=== PATIENT | female | born 1955 | race Caucasian/White ===

== ENCOUNTER 2018-05-10 11:35 | Inpatient (IN) | payer OTHER ==
[2018-05-10 12:09] LABS: ADD MAN DIFF? NO
[2018-05-10 12:10] LABS: WHITE BLOOD COUNT 10.9 10^3/ul (4.8-10.8)
[2018-05-10 12:10] LABS: BASOPHILS % 0.3 % (0.0-2.0); EOSINOPHILS # 0.2 10^3/ul (0.0-0.5); EOSINOPHILS % 1.9 % (0.0-7.0); HEMATOCRIT 34.1 % (37.0-47.0); HEMOGLOBIN 11.8 g/dl (12.0-16.0); LYMPHOCYTES # 0.8 10^3/ul (0.8-2.9); LYMPHOCYTES % 7.5 % (15.0-51.0); MEAN CORPUSCULAR HEMOGLOBIN 33.6 pg (29.0-33.0); MEAN CORPUSCULAR HGB CONC 34.6 g/dl (32.0-37.0); MEAN CORPUSCULAR VOLUME 97.2 fl (82.0-101.0); MEAN PLATELET VOLUME 11.7 fl (7.4-10.4); MONOCYTE # 0.7 10^3/ul (0.3-0.9); MONOCYTES % 6.7 % (0.0-11.0); NEUTROPHILS % 82.7 % (39.0-77.0); PLATELET COUNT 192 10^3/UL (140-415); RED BLOOD COUNT 3.51 10^6/ul (4.20-5.40); RED CELL DISTRIBUTION WIDTH 13.6 % (11.5-14.5)
[2018-05-10] MEDS: ONDANSETRON 4 MG INJ IV (12:15)
[2018-05-10 12:27] LABS: LACTIC ACID 1.8 mmol/L (0.5-2.0)
[2018-05-10 12:29] LABS: ALANINE AMINOTRANSFERASE 25 IU/L (13-69); ALBUMIN 4.5 g/dl (3.3-4.9); ALBUMIN/GLOBULIN RATIO 1.25; ALKALINE PHOSPHATASE 141 IU/L (42-121); ANION GAP 22 (8-16); ASPARTATE AMINO TRANSFERASE 23 IU/L (15-46); BLOOD UREA NITROGEN 56 mg/dl (7-20); CALCIUM 7.6 mg/dl (8.4-10.2); CARBON DIOXIDE 27 mmol/L (21-31); CHLORIDE 88 mmol/L (97-110); CREATININE 7.73 mg/dl (0.44-1.00); GLUCOSE 303 mg/dl (70-220); INR 0.91; PROTIME 12.3 Sec (11.9-14.9); SODIUM 130 mmol/L (135-144); TOTAL PROTEIN 8.1 g/dl (6.1-8.1)
[2018-05-10 12:30] LABS: PARTIAL THROMBOPLASTIN TIME 45.6 Sec (25.0-35.0)
[2018-05-10 12:38] LABS: POTASSIUM 7.2 mmol/L (3.5-5.1)
[2018-05-10 12:40] LABS: TROPONIN-I 0.011 ng/ml (0.000-0.120)
[2018-05-10] MEDS: NA POLYST SULFON 15 GM/60 ML BTL PO (13:03)
[2018-05-10] MEDS ORDERED: NACL 0.9% 3 ML SYG IV (13:30)
[2018-05-10] MEDS ORDERED: morphine 2 MG INJ IV (13:30)
[2018-05-10] MEDS ORDERED: LORAZEPAM 0.5 MG TAB PO (13:30)
[2018-05-10] MEDS ORDERED: ONDANSETRON 4 MG INJ IV (13:30)
[2018-05-10] MEDS ORDERED: ACETAMINOPHEN 325 MG TAB PO (13:30)
[2018-05-10] MEDS ORDERED: HYDROCODONE/APAP (5/325) TAB PO (13:30)
[2018-05-10] MEDS ORDERED: ALBUMIN HUMAN 25% 50 ML IV (14:00)
[2018-05-10] MEDS ORDERED: LABETALOL HCL 20MG INJ IV (14:00)
[2018-05-10 14:42] LABS: LACTIC ACID 2.6 mmol/L (0.5-2.0)
[2018-05-10 14:45] LABS: POTASSIUM 7.8 mmol/L (3.5-5.1)
[2018-05-10] MEDS ORDERED: GLUCOSE GEL 15 GRAM TUBE PO ×2 (15:30)
[2018-05-10] MEDS ORDERED: DEXTROSE 50% 50 ML SYRINGE IV ×2 (15:30)
[2018-05-10] MEDS ORDERED: GLUCOSE GEL 15 GRAM TUBE BUCCAL (15:30)
[2018-05-10] MEDS ORDERED: GLUCAGON 1 MG INJ IM (15:30)
[2018-05-10 15:32] LABS: HEPATITIS B SURFACE ANTIGEN NEGATIVE (NEGATIVE)
[2018-05-10] MEDS: GABAPENTIN 100 MG CAP PO ×2 (16:24→20:51)
[2018-05-10] MEDS: SOD CHLORIDE 0.9% 1,000 ML IV (16:24)
[2018-05-10 17:08] LABS: LACTIC ACID 2.1 mmol/L (0.5-2.0)
[2018-05-10] MEDS: CEFTRIAXONE 1 GM/50 ML (PMX) 50 ML IVPB (17:11)
[2018-05-10] MEDS: CALCIUM ACETATE 667 MG CAP PO (17:15)
[2018-05-10] MEDS: INSULIN ASPART [NOVOLOG] 3 ML PEN SC ×3 (18:18→20:50)
[2018-05-10] MEDS: INSULIN GLARGINE [LANTus] (100 UNITS/ML) SYG SC (20:00)
[2018-05-10] MEDS: METOPROLOL 25 MG TAB PO (20:49)
[2018-05-10] MEDS: NIFEdipine (XL) 60 MG TAB PO (20:51)
[2018-05-11] MEDS: ACCU-CHEK XX (02:00)
[2018-05-11] MEDS: BUMETANIDE 1 MG TAB PO (05:50)
[2018-05-11] MEDS: LEVOTHYROXINE 125 MCG TAB PO (05:50)
[2018-05-11 07:05] LABS: ADD MAN DIFF? NO
[2018-05-11 07:13] LABS: WHITE BLOOD COUNT 7.2 10^3/ul (4.8-10.8)
[2018-05-11 07:13] LABS: BASOPHILS % 0.4 % (0.0-2.0); EOSINOPHILS # 0.2 10^3/ul (0.0-0.5); EOSINOPHILS % 2.3 % (0.0-7.0); HEMATOCRIT 29.7 % (37.0-47.0); HEMOGLOBIN 9.9 g/dl (12.0-16.0); LYMPHOCYTES % 13.4 % (15.0-51.0); MEAN CORPUSCULAR HEMOGLOBIN 32.8 pg (29.0-33.0); MEAN CORPUSCULAR HGB CONC 33.3 g/dl (32.0-37.0); MEAN CORPUSCULAR VOLUME 98.3 fl (82.0-101.0); MEAN PLATELET VOLUME 12.1 fl (7.4-10.4); MONOCYTE # 0.6 10^3/ul (0.3-0.9); MONOCYTES % 8.7 % (0.0-11.0); NEUTROPHIL # 5.4 10^3/ul (1.6-7.5); NEUTROPHILS % 74.6 % (39.0-77.0); PLATELET COUNT 174 10^3/UL (140-415); RED BLOOD COUNT 3.02 10^6/ul (4.20-5.40)
[2018-05-11 07:37] LABS: LACTIC ACID 1.8 mmol/L (0.5-2.0)
[2018-05-11 07:40] LABS: ALANINE AMINOTRANSFERASE 25 IU/L (13-69); ALBUMIN 3.2 g/dl (3.3-4.9); ALBUMIN/GLOBULIN RATIO 1.03; ALKALINE PHOSPHATASE 72 IU/L (42-121); ANION GAP 16 (8-16); ASPARTATE AMINO TRANSFERASE 19 IU/L (15-46); BLOOD UREA NITROGEN 27 mg/dl (7-20); CALCIUM 7.4 mg/dl (8.4-10.2); CARBON DIOXIDE 29 mmol/L (21-31); CHLORIDE 96 mmol/L (97-110); CREATININE 4.82 mg/dl (0.44-1.00); GLUCOSE 106 mg/dl (70-220); POTASSIUM 5.1 mmol/L (3.5-5.1); SODIUM 136 mmol/L (135-144); TOTAL PROTEIN 6.3 g/dl (6.1-8.1)
[2018-05-11] MEDS: INSULIN ASPART [NOVOLOG] 3 ML PEN SC ×4 (08:08→12:30)
[2018-05-11 08:12] LABS: HEMOGLOBIN A1C 8.9 % (0-5.9)
[2018-05-11] MEDS: ASPIRIN 81 MG TAB PO (08:49)
[2018-05-11] MEDS: AMIODARONE 200 MG TAB PO (08:50)
[2018-05-11] MEDS: METOPROLOL 25 MG TAB PO (08:50)
[2018-05-11] MEDS: CALCIUM ACETATE 667 MG CAP PO ×2 (08:50→12:22)
[2018-05-11] MEDS: GABAPENTIN 100 MG CAP PO ×2 (08:51→12:22)
[2018-05-11] MEDS ORDERED: BENAZEPRIL 40 MG TAB PO (09:00)
[2018-05-15] MEDS ORDERED: LIDOCAINE 100 MG SYRINGE (20:10)
[2018-05-15] MEDS ORDERED: morphine SULFATE/PF (10 MG/10 ML) INJ (20:11)
[2018-05-15] MEDS ORDERED: LIDOCAINE 2% (SDV) 5 ML INJ (20:11)
[2018-05-15] MEDS ORDERED: KETOROLAC 30 MG INJ (20:11)
[2018-05-15] MEDS ORDERED: OXYTOCIN 10 UNIT INJ (20:11)
[2018-05-15] MEDS ORDERED: MIDAZOLAM 1 MG/ML 2 ML INJ ×2 (20:11)
[2018-05-15] MEDS ORDERED: MISOPROSTOL 200 MCG TAB (20:11)
== END 2018-05-11 14:25 | disposition home or self-care (01) | DRG 304 ==
LOC: E/R 11:35 → TEL 13:20
PROC: 5A1D70Z Performance of Urinary Filtration, Intermittent, Less than 6 Hours Per Day (ICD-10-PCS; principal; 2018-05-10)
DX: I16.1 Hypertensive emergency (principal); N18.6 End stage renal disease; E87.1 Hypo-osmolality and hyponatremia; I12.0 Hypertensive chronic kidney disease with stage 5 chronic kidney disease or end stage renal disease; E11.22 Type 2 diabetes mellitus with diabetic chronic kidney disease; E87.5 Hyperkalemia; I48.0 Paroxysmal atrial fibrillation; E03.9 Hypothyroidism, unspecified; E11.42 Type 2 diabetes mellitus with diabetic polyneuropathy; Z79.4 Long term (current) use of insulin; Z91.11 Patient's noncompliance with dietary regimen; R51 Headache; Z99.2 Dependence on renal dialysis
CPT/HCPCS: 36415; 71045; 80053; 82962; 83036; 83605; 83735; 84132; 84443; 84484; 85025; 85610; 85730; 87040; 87340; 90935; 93005; 96374; 99285-25

== ENCOUNTER 2018-10-04 14:04 | Emergency (ER) | payer OTHER, MEDICAID ==
[2018-10-04] MEDS: ONDANSETRON 4 MG INJ IV (14:37)
[2018-10-04] MEDS: morphine 4 MG/ML VIAL IV (14:37)
[2018-10-04 14:45] LABS: ADD MAN DIFF? NO
[2018-10-04 14:47] LABS: BASOPHILS % 0.2 % (0.0-2.0); EOSINOPHILS # 0.2 10^3/ul (0.0-0.5); EOSINOPHILS % 1.9 % (0.0-7.0); HEMATOCRIT 31.8 % (37.0-47.0); HEMOGLOBIN 10.6 g/dl (12.0-16.0); LYMPHOCYTES % 9.4 % (15.0-51.0); MEAN CORPUSCULAR HEMOGLOBIN 32.6 pg (29.0-33.0); MEAN CORPUSCULAR HGB CONC 33.3 g/dl (32.0-37.0); MEAN CORPUSCULAR VOLUME 97.8 fl (82.0-101.0); MONOCYTE # 0.6 10^3/ul (0.3-0.9); MONOCYTES % 5.6 % (0.0-11.0); NEUTROPHIL # 8.6 10^3/ul (1.6-7.5); NEUTROPHILS % 82.4 % (39.0-77.0); PLATELET COUNT 191 10^3/UL (140-415); RED BLOOD COUNT 3.25 10^6/ul (4.20-5.40); RED CELL DISTRIBUTION WIDTH 13.3 % (11.5-14.5)
[2018-10-04 14:47] LABS: WHITE BLOOD COUNT 10.5 10^3/ul (4.8-10.8)
[2018-10-04 15:06] LABS: ANION GAP 12 (5-13); BLOOD UREA NITROGEN 30 mg/dl (7-20); CALCIUM 8.5 mg/dl (8.4-10.2); CARBON DIOXIDE 32 mmol/L (21-31); CHLORIDE 95 mmol/L (97-110); CREATININE 4.44 mg/dl (0.44-1.00); Estimated GFR 10 mL/min (>60); GLUCOSE 233 mg/dl (70-220); POTASSIUM 3.7 mmol/L (3.5-5.1); SODIUM 139 mmol/L (135-144)
[2018-10-04 15:07] LABS: INR 0.92; PROTIME 12.4 Sec (11.9-14.9)
[2018-10-04 15:08] LABS: PARTIAL THROMBOPLASTIN TIME 47.9 Sec (23.0-35.0)
[2018-10-04 15:18] LABS: TROPONIN-I 0.014 ng/ml (0.000-0.120)
[2018-10-04] MEDS: DILTIAZEM 25 MG INJ IV (15:20)
[2018-10-04] MEDS: SOD CHLORIDE 0.9% 100 ML (16:22)
[2018-10-04] MEDS: IODIXANOL LOCM 100 ML BTL (16:22)
== END 2018-10-04 17:14 | disposition home or self-care (01) ==
LOC: E/R 14:04
DX: M54.9 Dorsalgia, unspecified (principal); R00.0 Tachycardia, unspecified; D64.9 Anemia, unspecified; I12.9 Hypertensive chronic kidney disease with stage 1 through stage 4 chronic kidney disease, or unspecified chronic kidney disease; N18.9 Chronic kidney disease, unspecified; E03.9 Hypothyroidism, unspecified; Z99.2 Dependence on renal dialysis; Z79.4 Long term (current) use of insulin; Z79.82 Long term (current) use of aspirin
CPT/HCPCS: 36415; 71045; 71275; 80048; 84484; 85025; 85610; 85730; 93005; 96374; 96375; 99285-25

== ENCOUNTER 2018-12-20 20:16 | Emergency (ER) | payer OTHER, MEDICAID ==
[2018-12-20] MEDS: DILTIAZEM 25 MG INJ IV (20:52)
[2018-12-20 20:54] LABS: ADD MAN DIFF? NO
[2018-12-20 21:06] LABS: WHITE BLOOD COUNT 9.6 10^3/ul (4.8-10.8)
[2018-12-20 21:06] LABS: BASOPHILS % 0.4 % (0.0-2.0); EOSINOPHILS # 0.3 10^3/ul (0.0-0.5); EOSINOPHILS % 2.7 % (0.0-7.0); HEMATOCRIT 33.5 % (37.0-47.0); LYMPHOCYTES # 1.2 10^3/ul (0.8-2.9); LYMPHOCYTES % 12.3 % (15.0-51.0); MEAN CORPUSCULAR HEMOGLOBIN 32.5 pg (29.0-33.0); MEAN CORPUSCULAR HGB CONC 32.8 g/dl (32.0-37.0); MEAN CORPUSCULAR VOLUME 99.1 fl (82.0-101.0); MEAN PLATELET VOLUME 11.8 fl (7.4-10.4); MONOCYTE # 0.6 10^3/ul (0.3-0.9); MONOCYTES % 6.1 % (0.0-11.0); NEUTROPHIL # 7.4 10^3/ul (1.6-7.5); NEUTROPHILS % 77.5 % (39.0-77.0); PLATELET COUNT 217 10^3/UL (140-415); RED BLOOD COUNT 3.38 10^6/ul (4.20-5.40); RED CELL DISTRIBUTION WIDTH 13.1 % (11.5-14.5)
[2018-12-20 21:30] LABS: ANION GAP 14 (5-13); BLOOD UREA NITROGEN 23 mg/dl (7-20); CALCIUM 8.6 mg/dl (8.4-10.2); CARBON DIOXIDE 32 mmol/L (21-31); CHLORIDE 92 mmol/L (97-110); CREATININE 4.41 mg/dl (0.44-1.00); Estimated GFR 10 mL/min (>60); POTASSIUM 3.9 mmol/L (3.5-5.1); SODIUM 138 mmol/L (135-144)
[2018-12-20 21:40] LABS: TROPONIN-I < 0.012 ng/ml (0.000-0.120)
[2018-12-20 21:42] LABS: GLUCOSE 404 mg/dl (70-220)
[2018-12-20] MEDS: INSULIN ASP PROT/ASPART (70/30) PEN SC (23:33)
== END 2018-12-21 00:36 | disposition home or self-care (01) ==
LOC: E/R 12-21 00:36
DX: I49.01 Ventricular fibrillation (principal); E03.9 Hypothyroidism, unspecified; E11.65 Type 2 diabetes mellitus with hyperglycemia; I12.0 Hypertensive chronic kidney disease with stage 5 chronic kidney disease or end stage renal disease; N18.6 End stage renal disease; E11.22 Type 2 diabetes mellitus with diabetic chronic kidney disease; Z79.4 Long term (current) use of insulin; Z79.82 Long term (current) use of aspirin; Z99.2 Dependence on renal dialysis
CPT/HCPCS: 36415; 71045; 80048; 82962; 84484; 85025; 93005; 96372; 96374; 99291-25

== ENCOUNTER 2019-05-19 21:15 | Inpatient (IN) | payer OTHER, MEDICAID ==
[2019-05-20 00:10] LABS: ADD MAN DIFF? NO
[2019-05-20 00:11] LABS: WHITE BLOOD COUNT 9.3 10^3/ul (4.8-10.8)
[2019-05-20 00:11] LABS: BASOPHILS % 0.4 % (0.0-2.0); EOSINOPHILS # 0.3 10^3/ul (0.0-0.5); EOSINOPHILS % 2.7 % (0.0-7.0); HEMATOCRIT 30.4 % (37.0-47.0); HEMOGLOBIN 10.1 g/dl (12.0-16.0); LYMPHOCYTES # 1.1 10^3/ul (0.8-2.9); MEAN CORPUSCULAR HEMOGLOBIN 31.9 pg (29.0-33.0); MEAN CORPUSCULAR HGB CONC 33.2 g/dl (32.0-37.0); MEAN CORPUSCULAR VOLUME 95.9 fl (82.0-101.0); MEAN PLATELET VOLUME 12.1 fl (7.4-10.4); MONOCYTE # 0.8 10^3/ul (0.3-0.9); MONOCYTES % 8.5 % (0.0-11.0); NEUTROPHIL # 7.1 10^3/ul (1.6-7.5); NEUTROPHILS % 75.4 % (39.0-77.0); PLATELET COUNT 181 10^3/UL (140-415); RED BLOOD COUNT 3.17 10^6/ul (4.20-5.40); RED CELL DISTRIBUTION WIDTH 13.1 % (11.5-14.5)
[2019-05-20] MEDS: morphine 2 MG INJ IV ×2 (00:23→16:54)
[2019-05-20] MEDS: ONDANSETRON 4 MG INJ IV ×3 (00:23→20:15)
[2019-05-20 00:28] LABS: ALANINE AMINOTRANSFERASE 25 IU/L (13-69); ALBUMIN 4.3 g/dl (3.3-4.9); ALBUMIN/GLOBULIN RATIO 1.07; ALKALINE PHOSPHATASE 107 IU/L (42-121); ANION GAP 19 (5-13); ASPARTATE AMINO TRANSFERASE 25 IU/L (15-46); BILIRUBIN,INDIRECT 0.2 mg/dl (0-1.1); BILIRUBIN,TOTAL 0.2 mg/dl (0.2-1.3); BLOOD UREA NITROGEN 71 mg/dl (7-20); CARBON DIOXIDE 22 mmol/L (21-31); CHLORIDE 93 mmol/L (97-110); CREATININE 9.69 mg/dl (0.44-1.00); Estimated GFR 4 mL/min (>60); GLUCOSE 235 mg/dl (70-220); LIPASE 79 U/L (23-300); SODIUM 134 mmol/L (135-144); TOTAL PROTEIN 8.3 g/dl (6.1-8.1)
[2019-05-20] MEDS: NITROGLYCERIN 50 MG/D5W (PMX) 250 ML IV ×6 (00:38→22:57)
[2019-05-20 01:02] LABS: POTASSIUM 6.7 mmol/L (3.5-5.1)
[2019-05-20] MEDS ORDERED: DEXTROSE 50% 50 ML SYRINGE IV ×3 (01:30→13:00)
[2019-05-20] MEDS: ALBUTEROL 0.5% (NEB) 2.5 MG/0.5 ML AMP INH (02:37)
[2019-05-20] MEDS: INSULIN REGULAR, HUMAN 100 UNIT/1 ML 3ML VIAL IVP (02:44)
[2019-05-20] MEDS: DEXTROSE 50% 50 ML SYRINGE IV (02:45)
[2019-05-20 04:03] LABS: ALANINE AMINOTRANSFERASE 22 IU/L (13-69); ALBUMIN 3.7 g/dl (3.3-4.9); ALBUMIN/GLOBULIN RATIO 1.05; ALKALINE PHOSPHATASE 76 IU/L (42-121); ANION GAP 17 (5-13); ASPARTATE AMINO TRANSFERASE 18 IU/L (15-46); BILIRUBIN,INDIRECT 0.2 mg/dl (0-1.1); BILIRUBIN,TOTAL 0.2 mg/dl (0.2-1.3); BLOOD UREA NITROGEN 73 mg/dl (7-20); CALCIUM 7.5 mg/dl (8.4-10.2); CARBON DIOXIDE 22 mmol/L (21-31); CHLORIDE 93 mmol/L (97-110); CREATININE 9.71 mg/dl (0.44-1.00); Estimated GFR 4 mL/min (>60); GLUCOSE 269 mg/dl (70-220); POTASSIUM 5.3 mmol/L (3.5-5.1); SODIUM 132 mmol/L (135-144); TOTAL PROTEIN 7.2 g/dl (6.1-8.1)
[2019-05-20] MEDS: SODIUM POLYSTYRENE 15 GM KIT (POWDER + SORBITOL) PO (05:51)
[2019-05-20 05:55] LABS: ALANINE AMINOTRANSFERASE 21 IU/L (13-69); ALBUMIN 3.6 g/dl (3.3-4.9); ALBUMIN/GLOBULIN RATIO 1.05; ALKALINE PHOSPHATASE 79 IU/L (42-121); ANION GAP 17 (5-13); ASPARTATE AMINO TRANSFERASE 17 IU/L (15-46); BILIRUBIN,INDIRECT 0.2 mg/dl (0-1.1); BILIRUBIN,TOTAL 0.2 mg/dl (0.2-1.3); BLOOD UREA NITROGEN 75 mg/dl (7-20); CALCIUM 7.5 mg/dl (8.4-10.2); CARBON DIOXIDE 23 mmol/L (21-31); CHLORIDE 95 mmol/L (97-110); CREATININE 9.64 mg/dl (0.44-1.00); Estimated GFR 4 mL/min (>60); GLUCOSE 219 mg/dl (70-220); POTASSIUM 5.1 mmol/L (3.5-5.1); SODIUM 135 mmol/L (135-144)
[2019-05-20] MEDS ORDERED: HEPARIN 5,000 UNIT/1 ML VIAL SC (08:30)
[2019-05-20] MEDS ORDERED: DOCUSATE SODIUM 100 MG CAP PO (08:30)
[2019-05-20] MEDS ORDERED: BISACODYL (EC) 5 MG TAB PO (08:30)
[2019-05-20 08:54] LABS: HEMOGLOBIN A1C 9.6 % (0-5.9)
[2019-05-20 11:16] LABS: HEPATITIS B SURFACE ANTIGEN NEGATIVE (NEGATIVE)
[2019-05-20] MEDS: FAMOTIDINE 20 MG TAB PO (11:41)
[2019-05-20] MEDS: CALCIUM ACETATE 667 MG CAP PO ×2 (11:41→17:35)
[2019-05-20] MEDS: APIXABAN 5 MG TABLET PO ×2 (11:41→20:15)
[2019-05-20] MEDS: PYRIDOXINE 50 MG TAB PO (11:41)
[2019-05-20] MEDS: ASPIRIN (EC) 81 MG TAB PO (11:41)
[2019-05-20] MEDS: PANTOPRAZOLE (EC) 40 MG TAB PO (11:42)
[2019-05-20] MEDS: PENTOXIFYLLINE (SR) 400 MG TAB PO (11:42)
[2019-05-20] MEDS: CALCIUM GLUCONATE 10% 1 GM in DEXTROSE 5% 100 ML IVPB (12:54)
[2019-05-20] MEDS: NYSTATIN 15 GM CR TOP ×2 (12:54→20:24)
[2019-05-20] MEDS ORDERED: GLUCOSE GEL 15 GRAM TUBE PO ×2 (13:00)
[2019-05-20] MEDS ORDERED: GLUCOSE GEL 15 GRAM TUBE BUCCAL (13:00)
[2019-05-20] MEDS ORDERED: GLUCAGON 1 MG INJ IM (13:00)
[2019-05-20] MEDS ORDERED: morphine 2 MG INJ IV (17:00)
[2019-05-20] MEDS: INSULIN ASPART [NOVOLOG] 3 ML PEN SC ×3 (17:39→20:27)
[2019-05-20] MEDS: ACETAMINOPHEN 650MG/20.3ML CUP PO (17:47)
[2019-05-20] MEDS: HYDROCODONE/APAP (5/325) TAB PO (20:23)
[2019-05-20] MEDS: NIFEdipine (XL) 60 MG TAB PO (21:03)
[2019-05-20] MEDS ORDERED: hydrALAzine 20 MG INJ IV (23:30)
[2019-05-21] MEDS: NITROGLYCERIN 50 MG/D5W (PMX) 250 ML IV (01:21)
[2019-05-21] MEDS: ACCU-CHEK XX (01:21)
[2019-05-21 06:04] LABS: ANION GAP 12 (5-13); BLOOD UREA NITROGEN 36 mg/dl (7-20); CALCIUM 8.3 mg/dl (8.4-10.2); CARBON DIOXIDE 27 mmol/L (21-31); CHLORIDE 92 mmol/L (97-110); CREATININE 6.55 mg/dl (0.44-1.00); Estimated GFR 6 mL/min (>60); GLUCOSE 153 mg/dl (70-220); POTASSIUM 5.2 mmol/L (3.5-5.1); SODIUM 131 mmol/L (135-144)
[2019-05-21] MEDS: INSULIN ASPART [NOVOLOG] 3 ML PEN SC ×6 (07:35→20:41)
[2019-05-21] MEDS: ASPIRIN (EC) 81 MG TAB PO (08:17)
[2019-05-21] MEDS: PENTOXIFYLLINE (SR) 400 MG TAB PO (08:17)
[2019-05-21] MEDS: PANTOPRAZOLE (EC) 40 MG TAB PO (08:17)
[2019-05-21] MEDS: PYRIDOXINE 50 MG TAB PO (08:17)
[2019-05-21] MEDS: FAMOTIDINE 20 MG TAB PO (08:17)
[2019-05-21] MEDS: APIXABAN 5 MG TABLET PO ×2 (08:17→20:40)
[2019-05-21] MEDS: CALCIUM ACETATE 667 MG CAP PO ×3 (08:17→17:46)
[2019-05-21] MEDS: NIFEdipine (XL) 60 MG TAB PO ×2 (08:17→20:41)
[2019-05-21] MEDS: BENAZEPRIL 40 MG TAB PO (08:19)
[2019-05-21] MEDS: NYSTATIN 15 GM CR TOP ×2 (08:20→22:56)
[2019-05-21] MEDS: LEVOTHYROXINE 125 MCG TAB PO (10:24)
[2019-05-21] MEDS: ONDANSETRON 4 MG INJ IV (12:24)
[2019-05-22] MEDS: ACCU-CHEK XX (02:00)
[2019-05-22 05:42] LABS: ADD MAN DIFF? NO
[2019-05-22 05:44] LABS: BASOPHILS % 0.4 % (0.0-2.0); EOSINOPHILS # 0.3 10^3/ul (0.0-0.5); HEMOGLOBIN 8.4 g/dl (12.0-16.0); LYMPHOCYTES # 1.1 10^3/ul (0.8-2.9); LYMPHOCYTES % 14.8 % (15.0-51.0); MEAN CORPUSCULAR HEMOGLOBIN 31.2 pg (29.0-33.0); MEAN CORPUSCULAR HGB CONC 32.3 g/dl (32.0-37.0); MEAN CORPUSCULAR VOLUME 96.7 fl (82.0-101.0); MEAN PLATELET VOLUME 12.1 fl (7.4-10.4); MONOCYTE # 0.8 10^3/ul (0.3-0.9); MONOCYTES % 10.7 % (0.0-11.0); NEUTROPHIL # 5.2 10^3/ul (1.6-7.5); NEUTROPHILS % 69.7 % (39.0-77.0); PLATELET COUNT 156 10^3/UL (140-415); RED BLOOD COUNT 2.69 10^6/ul (4.20-5.40); RED CELL DISTRIBUTION WIDTH 13.1 % (11.5-14.5)
[2019-05-22 05:44] LABS: WHITE BLOOD COUNT 7.5 10^3/ul (4.8-10.8)
[2019-05-22] MEDS: LEVOTHYROXINE 125 MCG TAB PO (06:04)
[2019-05-22 06:44] LABS: ANION GAP 14 (5-13); BLOOD UREA NITROGEN 48 mg/dl (7-20); CALCIUM 8.3 mg/dl (8.4-10.2); CARBON DIOXIDE 27 mmol/L (21-31); CHLORIDE 91 mmol/L (97-110); CREATININE 7.92 mg/dl (0.44-1.00); Estimated GFR 5 mL/min (>60); GLUCOSE 140 mg/dl (70-220); MAGNESIUM 1.9 mg/dl (1.7-2.5); PHOSPHORUS 9.5 mg/dl (2.5-4.9); POTASSIUM 5.2 mmol/L (3.5-5.1); SODIUM 132 mmol/L (135-144)
[2019-05-22] MEDS: NYSTATIN 15 GM CR TOP ×2 (08:46→23:12)
[2019-05-22] MEDS: PENTOXIFYLLINE (SR) 400 MG TAB PO (08:46)
[2019-05-22] MEDS: BENAZEPRIL 40 MG TAB PO (08:46)
[2019-05-22] MEDS: ASPIRIN (EC) 81 MG TAB PO (08:46)
[2019-05-22] MEDS: PYRIDOXINE 50 MG TAB PO (08:46)
[2019-05-22] MEDS: FAMOTIDINE 20 MG TAB PO (08:46)
[2019-05-22] MEDS: PANTOPRAZOLE (EC) 40 MG TAB PO (08:46)
[2019-05-22] MEDS: CALCIUM ACETATE 667 MG CAP PO ×3 (08:46→17:23)
[2019-05-22] MEDS: APIXABAN 5 MG TABLET PO ×2 (08:46→20:53)
[2019-05-22] MEDS: NIFEdipine (XL) 60 MG TAB PO ×2 (08:47→20:53)
[2019-05-22] MEDS: INSULIN ASPART [NOVOLOG] 3 ML PEN SC ×6 (08:48→21:00)
[2019-05-22] MEDS ORDERED: NA POLYST SULFON 15 GM/60 ML BTL PO (12:30)
[2019-05-22 16:37] LABS: ANION GAP 16 (5-13); BLOOD UREA NITROGEN 53 mg/dl (7-20); CALCIUM 8.3 mg/dl (8.4-10.2); CARBON DIOXIDE 25 mmol/L (21-31); CHLORIDE 89 mmol/L (97-110); CREATININE 8.56 mg/dl (0.44-1.00); Estimated GFR 5 mL/min (>60); GLUCOSE 193 mg/dl (70-220); SODIUM 130 mmol/L (135-144)
[2019-05-22 16:40] LABS: POTASSIUM 5.9 mmol/L (3.5-5.1)
[2019-05-22] MEDS: VELTASSA 16.8 GM PO (16:55)
[2019-05-22] MEDS: ONDANSETRON 4 MG INJ IV (17:00)
[2019-05-22] MEDS ORDERED: ONDANSETRON 4 MG INJ IV (17:00)
[2019-05-22] MEDS: METOCLOPRAMIDE 10 MG INJ IV ×2 (17:22→23:58)
[2019-05-22] MEDS: HYDROCODONE/APAP (5/325) TAB PO (20:51)
[2019-05-22 22:21] LABS: POTASSIUM 5.8 mmol/L (3.5-5.1)
[2019-05-22] MEDS: SODIUM POLYSTYRENE 15 GM KIT (POWDER + SORBITOL) PO (23:14)
[2019-05-23] MEDS: ACCU-CHEK XX (02:00)
[2019-05-23] MEDS: LEVOTHYROXINE 125 MCG TAB PO (06:44)
[2019-05-23] MEDS: METOCLOPRAMIDE 10 MG INJ IV ×2 (06:44→12:42)
[2019-05-23] MEDS: INSULIN ASPART [NOVOLOG] 3 ML PEN SC ×6 (08:00→21:00)
[2019-05-23] MEDS: INSULIN GLARGINE [LANTus] (100 UNITS/ML) SYG SC (08:28)
[2019-05-23] MEDS: PENTOXIFYLLINE (SR) 400 MG TAB PO (08:34)
[2019-05-23] MEDS: FAMOTIDINE 20 MG TAB PO (08:34)
[2019-05-23] MEDS: PYRIDOXINE 50 MG TAB PO (08:34)
[2019-05-23] MEDS: PANTOPRAZOLE (EC) 40 MG TAB PO ×2 (08:34→17:36)
[2019-05-23] MEDS: NIFEdipine (XL) 60 MG TAB PO ×3 (08:35→21:38)
[2019-05-23] MEDS: BENAZEPRIL 40 MG TAB PO ×2 (08:35→09:00)
[2019-05-23] MEDS: APIXABAN 5 MG TABLET PO (08:35)
[2019-05-23] MEDS: CALCIUM ACETATE 667 MG CAP PO ×3 (08:35→17:35)
[2019-05-23] MEDS: ASPIRIN (EC) 81 MG TAB PO (08:35)
[2019-05-23] MEDS: NYSTATIN 15 GM CR TOP ×2 (09:00→21:39)
[2019-05-23 12:07] LABS: MAGNESIUM 1.9 mg/dl (1.7-2.5)
[2019-05-23 12:07] LABS: PHOSPHORUS 9.2 mg/dl (2.5-4.9)
[2019-05-23] MEDS: LORAZEPAM 2 MG INJ IV (15:22)
[2019-05-23] MEDS: clonAZEPAM 0.5 MG TAB PO (21:36)
[2019-05-24] MEDS: ACCU-CHEK XX (02:00)
[2019-05-24] MEDS: INSULIN ASPART [NOVOLOG] 3 ML PEN SC ×6 (05:00→17:13)
[2019-05-24] MEDS: PANTOPRAZOLE (EC) 40 MG TAB PO ×2 (06:00→17:09)
[2019-05-24 06:16] LABS: ADD MAN DIFF? NO
[2019-05-24] MEDS: LEVOTHYROXINE 125 MCG TAB PO (06:17)
[2019-05-24 06:27] LABS: WHITE BLOOD COUNT 6.1 10^3/ul (4.8-10.8)
[2019-05-24 06:27] LABS: BASOPHILS % 0.3 % (0.0-2.0); EOSINOPHILS # 0.1 10^3/ul (0.0-0.5); EOSINOPHILS % 1.8 % (0.0-7.0); HEMATOCRIT 26.2 % (37.0-47.0); HEMOGLOBIN 8.5 g/dl (12.0-16.0); LYMPHOCYTES # 0.8 10^3/ul (0.8-2.9); LYMPHOCYTES % 13.6 % (15.0-51.0); MEAN CORPUSCULAR HEMOGLOBIN 31.4 pg (29.0-33.0); MEAN CORPUSCULAR HGB CONC 32.4 g/dl (32.0-37.0); MEAN CORPUSCULAR VOLUME 96.7 fl (82.0-101.0); MEAN PLATELET VOLUME 11.9 fl (7.4-10.4); MONOCYTE # 0.6 10^3/ul (0.3-0.9); MONOCYTES % 9.7 % (0.0-11.0); NEUTROPHIL # 4.5 10^3/ul (1.6-7.5); NEUTROPHILS % 74.1 % (39.0-77.0); PLATELET COUNT 146 10^3/UL (140-415); RED BLOOD COUNT 2.71 10^6/ul (4.20-5.40); RED CELL DISTRIBUTION WIDTH 12.8 % (11.5-14.5)
[2019-05-24 06:51] LABS: ALBUMIN 3.4 g/dl (3.3-4.9); ANION GAP 10 (5-13); BLOOD UREA NITROGEN 28 mg/dl (7-20); CALCIUM 7.9 mg/dl (8.4-10.2); CARBON DIOXIDE 29 mmol/L (21-31); CHLORIDE 96 mmol/L (97-110); CREATININE 5.99 mg/dl (0.44-1.00); GLUCOSE 134 mg/dl (70-220); PHOSPHORUS 6.3 mg/dl (2.5-4.9); POTASSIUM 4.6 mmol/L (3.5-5.1); SODIUM 135 mmol/L (135-144)
[2019-05-24] MEDS: CALCIUM ACETATE 667 MG CAP PO ×3 (07:35→17:09)
[2019-05-24] MEDS: INSULIN GLARGINE [LANTus] (100 UNITS/ML) SYG SC (08:00)
[2019-05-24] MEDS: ASPIRIN (EC) 81 MG TAB PO (09:00)
[2019-05-24] MEDS: PYRIDOXINE 50 MG TAB PO (09:00)
[2019-05-24] MEDS: NIFEdipine (XL) 60 MG TAB PO (09:00)
[2019-05-24] MEDS: FAMOTIDINE 20 MG TAB PO (09:00)
[2019-05-24] MEDS: PENTOXIFYLLINE (SR) 400 MG TAB PO (09:00)
[2019-05-24] MEDS: clonAZEPAM 0.5 MG TAB PO (09:00)
[2019-05-24] MEDS: BENAZEPRIL 40 MG TAB PO (09:00)
[2019-05-24] MEDS: NYSTATIN 15 GM CR TOP (09:00)
[2019-05-25] MEDS ORDERED: EPOETIN ALFA-EPBX (ESRD) 3,000 UNIT/ML VIAL SC (17:00)
== END 2019-05-24 18:40 | disposition home or self-care (01) | DRG 73 ==
LOC: PP2 05-21 15:07 → E/R 21:15 → ICU 05-20 01:40
DX: E11.43 Type 2 diabetes mellitus with diabetic autonomic (poly)neuropathy (principal); N18.6 End stage renal disease; I16.1 Hypertensive emergency; I12.0 Hypertensive chronic kidney disease with stage 5 chronic kidney disease or end stage renal disease; A08.4 Viral intestinal infection, unspecified; E87.70 Fluid overload, unspecified; E87.5 Hyperkalemia; Z68.36 Body mass index [BMI] 36.0-36.9, adult; E66.01 Morbid (severe) obesity due to excess calories; K31.84 Gastroparesis; E03.9 Hypothyroidism, unspecified; E11.22 Type 2 diabetes mellitus with diabetic chronic kidney disease; I48.0 Paroxysmal atrial fibrillation; E11.42 Type 2 diabetes mellitus with diabetic polyneuropathy; K21.9 Gastro-esophageal reflux disease without esophagitis; E11.65 Type 2 diabetes mellitus with hyperglycemia; Z79.82 Long term (current) use of aspirin; Z79.01 Long term (current) use of anticoagulants; Z99.2 Dependence on renal dialysis
CPT/HCPCS: 36415; 71045; 74176; 76705; 80048; 80053; 80069; 82962; 83036; 83690; 83735; 84100; 84132; 85025; 87340; 90935; 93005; 94664; 96374; 96375; 99285-25

== ENCOUNTER 2019-07-06 20:53 | Inpatient (IN) | payer OTHER, MEDICAID ==
[2019-07-06] MEDS: DILTIAZEM 25 MG INJ IV ×2 (21:20→22:30)
[2019-07-06] MEDS: ASPIRIN 81 MG TAB PO (21:39)
[2019-07-06] MEDS: AL HYDROX/MG HYDROX/SIMETH 30 ML CUP PO (21:39)
[2019-07-06] MEDS: FAMOTIDINE 20 MG TAB PO (21:39)
[2019-07-06] MEDS: NIFEdipine (XL) 60 MG TAB PO (21:49)
[2019-07-06] MEDS ORDERED: ONDANSETRON 4 MG INJ IV (22:30)
[2019-07-06] MEDS ORDERED: ACETAMINOPHEN 325 MG TAB PO (22:30)
[2019-07-07] MEDS: hydrALAzine 20 MG INJ IV (00:52)
[2019-07-07] MEDS ORDERED: NACL 0.9% 3 ML SYG IV (01:00)
[2019-07-07] MEDS ORDERED: NITROGLYCERIN (SL) 0.4 MG TAB SL (01:00)
[2019-07-07] MEDS: ACETAMINOPHEN 325 MG TAB PO (01:29)
[2019-07-07] MEDS: ONDANSETRON 4 MG INJ IV (01:43)
[2019-07-07] MEDS ORDERED: GLUCAGON 1 MG INJ IM (02:30)
[2019-07-07] MEDS ORDERED: GLUCOSE GEL 15 GRAM TUBE BUCCAL (02:30)
[2019-07-07] MEDS ORDERED: DEXTROSE 50% 50 ML SYRINGE IV ×2 (02:30)
[2019-07-07] MEDS ORDERED: GLUCOSE GEL 15 GRAM TUBE PO ×2 (02:30)
[2019-07-07] MEDS: ACCU-CHEK XX (02:47)
[2019-07-07] MEDS: LEVOTHYROXINE 125 MCG TAB PO (06:45)
[2019-07-07] MEDS: BENAZEPRIL 40 MG TAB PO (08:14)
[2019-07-07] MEDS: ASPIRIN 81 MG TAB PO (08:14)
[2019-07-07] MEDS: PENTOXIFYLLINE (SR) 400 MG TAB PO (08:14)
[2019-07-07] MEDS: HEPARIN 5,000 UNIT/1 ML VIAL SC ×2 (08:18→20:38)
[2019-07-07] MEDS: INSULIN ASPART [NOVOLOG] 3 ML PEN SC ×6 (08:18→20:37)
[2019-07-07] MEDS ORDERED: DILTIAZEM 25 MG INJ IV (10:30)
[2019-07-07] MEDS: APIXABAN 5 MG TABLET PO ×2 (12:09→20:22)
[2019-07-07] MEDS: INSULIN GLARGINE [LANTus] (100 UNITS/ML) SYG SC (12:14)
[2019-07-07] MEDS: POLYETHYLENE GLYCOL 17 GM PACKET PO (20:23)
[2019-07-07] MEDS: METOPROLOL 25 MG TAB PO (20:38)
[2019-07-07] MEDS ORDERED: ALBUMIN HUMAN 25% 100 ML IV (23:30)
[2019-07-07] MEDS ORDERED: SODIUM CHLORIDE 0.9% 1L BAG IV (23:30)
[2019-07-08] MEDS: ACCU-CHEK XX (01:56)
[2019-07-08] MEDS: morphine 2 MG INJ IV (04:04)
[2019-07-08] MEDS: LEVOTHYROXINE 125 MCG TAB PO (06:11)
[2019-07-08] MEDS: METOPROLOL 25 MG TAB PO ×3 (06:33→20:31)
[2019-07-08] MEDS: INSULIN ASPART [NOVOLOG] 3 ML PEN SC ×7 (08:03→20:34)
[2019-07-08] MEDS: ASPIRIN 81 MG TAB PO (08:06)
[2019-07-08] MEDS: PENTOXIFYLLINE (SR) 400 MG TAB PO (08:06)
[2019-07-08] MEDS: APIXABAN 5 MG TABLET PO ×2 (08:06→20:30)
[2019-07-08] MEDS: BENAZEPRIL 20 MG TAB PO (08:07)
[2019-07-08] MEDS: HEPARIN 5,000 UNIT/1 ML VIAL SC ×2 (08:15→20:37)
[2019-07-08] MEDS: INSULIN GLARGINE [LANTus] (100 UNITS/ML) SYG SC (08:16)
[2019-07-08] MEDS: ONDANSETRON 4 MG INJ IV (12:00)
[2019-07-08] MEDS: hydrALAzine 20 MG INJ IV ×2 (17:19→20:31)
[2019-07-08] MEDS: POLYETHYLENE GLYCOL 17 GM PACKET PO (20:31)
[2019-07-09] MEDS: ACCU-CHEK XX (02:00)
[2019-07-09] MEDS: hydrALAzine 20 MG INJ IV ×2 (04:58→15:35)
[2019-07-09] MEDS: LEVOTHYROXINE 125 MCG TAB PO (06:41)
[2019-07-09] MEDS: HEPARIN 5,000 UNIT/1 ML VIAL SC ×2 (07:54→20:20)
[2019-07-09] MEDS: APIXABAN 5 MG TABLET PO ×2 (08:15→20:17)
[2019-07-09] MEDS: PENTOXIFYLLINE (SR) 400 MG TAB PO (08:15)
[2019-07-09] MEDS: BENAZEPRIL 20 MG TAB PO (08:16)
[2019-07-09] MEDS: METOPROLOL 25 MG TAB PO ×2 (08:17→20:18)
[2019-07-09] MEDS: INSULIN ASPART [NOVOLOG] 3 ML PEN SC ×7 (08:28→20:18)
[2019-07-09] MEDS: INSULIN GLARGINE [LANTus] (100 UNITS/ML) SYG SC (08:28)
[2019-07-09] MEDS ORDERED: MAGNESIUM CITRATE 300 ML BTL PO (10:00)
[2019-07-09] MEDS: AMLODIPINE 5 MG TAB PO ×2 (10:01→13:18)
[2019-07-09] MEDS: DOCUSATE SODIUM 100 MG CAP PO ×2 (10:01→20:18)
[2019-07-09] MEDS: LACTULOSE 30ML CUP PO (10:01)
[2019-07-09] MEDS: ONDANSETRON 4 MG INJ IV (15:35)
[2019-07-09] MEDS: POLYETHYLENE GLYCOL 17 GM PACKET PO (20:17)
[2019-07-10] MEDS: ACCU-CHEK XX (02:00)
[2019-07-10] MEDS: LEVOTHYROXINE 125 MCG TAB PO (06:02)
[2019-07-10] MEDS: INSULIN ASPART [NOVOLOG] 3 ML PEN SC ×7 (08:00→20:19)
[2019-07-10] MEDS: INSULIN GLARGINE [LANTus] (100 UNITS/ML) SYG SC (08:00)
[2019-07-10] MEDS: HEPARIN 5,000 UNIT/1 ML VIAL SC ×2 (09:00→20:11)
[2019-07-10] MEDS: DOCUSATE SODIUM 100 MG CAP PO ×2 (09:53→20:12)
[2019-07-10] MEDS: BENAZEPRIL 20 MG TAB PO (09:53)
[2019-07-10] MEDS: APIXABAN 5 MG TABLET PO ×2 (09:53→20:12)
[2019-07-10] MEDS: PENTOXIFYLLINE (SR) 400 MG TAB PO (09:54)
[2019-07-10] MEDS: METOPROLOL 25 MG TAB PO (09:54)
[2019-07-10] MEDS: AMLODIPINE 10 MG TAB PO (09:54)
[2019-07-10] MEDS: hydrALAzine 20 MG INJ IV (12:05)
[2019-07-10] MEDS: POLYETHYLENE GLYCOL 17 GM PACKET PO (20:12)
[2019-07-11] MEDS: ACCU-CHEK XX (01:57)
[2019-07-11] MEDS: LEVOTHYROXINE 125 MCG TAB PO (05:48)
[2019-07-11] MEDS: INSULIN ASPART [NOVOLOG] 3 ML PEN SC ×6 (08:00→17:12)
[2019-07-11] MEDS: INSULIN GLARGINE [LANTus] (100 UNITS/ML) SYG SC (08:00)
[2019-07-11] MEDS: PENTOXIFYLLINE (SR) 400 MG TAB PO (08:06)
[2019-07-11] MEDS: DOCUSATE SODIUM 100 MG CAP PO (08:06)
[2019-07-11] MEDS: HEPARIN 5,000 UNIT/1 ML VIAL SC (08:06)
[2019-07-11] MEDS: APIXABAN 5 MG TABLET PO (08:06)
[2019-07-11] MEDS: AMLODIPINE 10 MG TAB PO ×3 (08:10→14:45)
[2019-07-11] MEDS: METOPROLOL (XL) 25 MG TAB PO ×3 (08:10→14:46)
[2019-07-11] MEDS: BENAZEPRIL 20 MG TAB PO ×3 (08:11→14:45)
[2019-07-11] MEDS: hydrALAzine 20 MG INJ IV (14:03)
[2019-07-11] MEDS ORDERED: NIFEdipine (XL) 60 MG TAB PO (21:00)
== END 2019-07-11 18:51 | disposition home health service (06) | DRG 308 ==
LOC: 6WM 22:16 → E/R 20:53
PROC: 5A1D70Z Performance of Urinary Filtration, Intermittent, Less than 6 Hours Per Day (ICD-10-PCS; principal; 2019-07-06)
DX: I48.0 Paroxysmal atrial fibrillation (principal); N18.6 End stage renal disease; I12.0 Hypertensive chronic kidney disease with stage 5 chronic kidney disease or end stage renal disease; E11.22 Type 2 diabetes mellitus with diabetic chronic kidney disease; Z99.2 Dependence on renal dialysis; E66.01 Morbid (severe) obesity due to excess calories; Z68.36 Body mass index [BMI] 36.0-36.9, adult; E03.9 Hypothyroidism, unspecified; E11.51 Type 2 diabetes mellitus with diabetic peripheral angiopathy without gangrene; Z91.14 Patient's other noncompliance with medication regimen
CPT/HCPCS: 36415; 71045; 80048; 80053; 80061; 82550; 82553; 82962; 83036; 83735; 84100; 84436; 84443; 84479; 84484; 85025; 87340; 90935; 93005; 96374; 99285-25

== ENCOUNTER 2019-07-12 18:25 | Emergency (ER) | payer OTHER, MEDICAID ==
[2019-07-12 20:05] LABS: ADD MAN DIFF? NO
[2019-07-12] MEDS: LORAZEPAM 2 MG INJ IV (20:08)
[2019-07-12 20:11] LABS: BASOPHILS % 0.5 % (0.0-2.0); EOSINOPHILS # 0.2 10^3/ul (0.0-0.5); EOSINOPHILS % 2.1 % (0.0-7.0); HEMATOCRIT 32.3 % (37.0-47.0); HEMOGLOBIN 10.3 g/dl (12.0-16.0); LYMPHOCYTES # 1.1 10^3/ul (0.8-2.9); LYMPHOCYTES % 13.4 % (15.0-51.0); MEAN CORPUSCULAR HEMOGLOBIN 31.8 pg (29.0-33.0); MEAN CORPUSCULAR HGB CONC 31.9 g/dl (32.0-37.0); MEAN CORPUSCULAR VOLUME 99.7 fl (82.0-101.0); MEAN PLATELET VOLUME 10.8 fl (7.4-10.4); MONOCYTES % 12.5 % (0.0-11.0); NEUTROPHIL # 5.8 10^3/ul (1.6-7.5); NEUTROPHILS % 70.8 % (39.0-77.0); PLATELET COUNT 215 10^3/UL (140-415); RED BLOOD COUNT 3.24 10^6/ul (4.20-5.40); RED CELL DISTRIBUTION WIDTH 13.2 % (11.5-14.5)
[2019-07-12 20:11] LABS: WHITE BLOOD COUNT 8.2 10^3/ul (4.8-10.8)
[2019-07-12 20:29] LABS: ANION GAP 14 (5-13); BLOOD UREA NITROGEN 36 mg/dl (7-20); CALCIUM 8.7 mg/dl (8.4-10.2); CARBON DIOXIDE 30 mmol/L (21-31); CHLORIDE 92 mmol/L (97-110); CREATININE 7.51 mg/dl (0.44-1.00); Estimated GFR 5 mL/min (>60); GLUCOSE 236 mg/dl (70-220); POTASSIUM 5.2 mmol/L (3.5-5.1); SODIUM 136 mmol/L (135-144)
== END 2019-07-12 21:25 | disposition home or self-care (01) ==
LOC: E/R 18:25
DX: R42 Dizziness and giddiness (principal); I12.0 Hypertensive chronic kidney disease with stage 5 chronic kidney disease or end stage renal disease; N18.6 End stage renal disease; T46.1X5A Adverse effect of calcium-channel blockers, initial encounter; E11.22 Type 2 diabetes mellitus with diabetic chronic kidney disease; Z79.01 Long term (current) use of anticoagulants; Z79.4 Long term (current) use of insulin; Z99.2 Dependence on renal dialysis
CPT/HCPCS: 36415; 80048; 85025; 96374; 99284-25